=== PATIENT | female | born 1960 | race African-American/Black ===

== ENCOUNTER 2021-09-22 09:39 | Emergency (ER) | payer MEDICAID ==
[~2021-09-22] VITALS: Ht 162.6 cm; Wt 59.0 kg
[2021-09-22 09:44] VITALS: BP 134/78
[2021-09-22] MEDS ORDERED: AMOX1TAB16 MT (11:27)
[2021-09-22] MEDS ORDERED: AMOXICILLIN/POTASSIUM CLAVULANATE 875/125MG TAB PO ONE (12:00)
== END 2021-09-22 13:48 | disposition home or self-care (01) ==
LOC: ER 10:02
DX: S62.502A Fracture of unspecified phalanx of left thumb, initial encounter for closed fracture (principal); W54.0XXA Bitten by dog, initial encounter; Y93.89 Activity, other specified; Y92.89 Other specified places as the place of occurrence of the external cause; Y99.8 Other external cause status
CPT/HCPCS: 12002; 73140; 99283; Z7610

== ENCOUNTER 2023-05-18 20:21 | Emergency (ER) | payer MEDICAID ==
[~2023-05-18] VITALS: Ht 165.1 cm; Wt 69.0 kg
[~2023-05-18 20:21] MED LIST: AMOX1TAB16 MT
[2023-05-18 20:25] VITALS: BP 151/91; PULSE 110; TEMP 98.7; O2SAT 100
[2023-05-18] MEDS ORDERED: TOPUD MT (21:36)
[2023-05-18] MEDS ORDERED: DICL500C MT (21:36)
== END 2023-05-18 21:49 | disposition home or self-care (01) ==
LOC: ER 20:21
DX: L03.012 Cellulitis of left finger (principal); J45.909 Unspecified asthma, uncomplicated
CPT/HCPCS: 99283